=== PATIENT | female | born 1965 | race Asian ===

== ENCOUNTER 2020-03-10 13:04 | Emergency (ER) | payer MEDICAID ==
[~2020-03-10] VITALS: Ht 149.9 cm; Wt 66.2 kg
[2020-03-10 13:12] VITALS: Ht 149.9 cm; Wt 66.2 kg
[2020-03-10 14:40] LABS: FREE T4 0.82 ng/dL (0.76-1.46)
[2020-03-10 16:09] VITALS: BP 139/85
== END 2020-03-10 16:09 | disposition home or self-care (01) ==
LOC: ED 13:04
PROVIDERS: Emergency Medicine
DX: E04.9 Nontoxic goiter, unspecified (principal); R22.1 Localized swelling, mass and lump, neck
CPT/HCPCS: 84439

== ENCOUNTER 2020-03-15 16:38 | Emergency (ER) | payer MEDICAID ==
[~2020-03-15] VITALS: Ht 149.9 cm; Wt 64.0 kg
[2020-03-15 16:51] VITALS: Ht 149.9 cm; Wt 64.0 kg
[2020-03-15 17:32] VITALS: BP 169/92
== END 2020-03-15 17:32 | disposition home or self-care (01) ==
LOC: ED 16:38
DX: E04.9 Nontoxic goiter, unspecified (principal); R03.0 Elevated blood-pressure reading, without diagnosis of hypertension